=== PATIENT | male | born 1985 ===

== ENCOUNTER 2017-09-28 21:59 | Emergency (ER) | payer OTHER ==
[2017-09-28 22:22] VITALS: PULSE 105; RESP 20; TEMP 98.6; O2SAT 96
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
== END 2017-09-28 23:11 | disposition home or self-care (01) ==
LOC: C.ER 21:59
DX: S39.012A Strain of muscle, fascia and tendon of lower back, initial encounter (principal); V49.9XXA Car occupant (driver) (passenger) injured in unspecified traffic accident, initial encounter; I10 Essential (primary) hypertension